=== PATIENT | female | born 1975 | race African-American/Black ===

== ENCOUNTER 2017-12-10 15:53 | Emergency (ER) | payer OTHER ==
[~2017-12-10] VITALS: Ht 160 cm; Wt 78.0 kg
[2017-12-10 19:27] VITALS: BP 128/94
== END 2017-12-10 22:21 | disposition home or self-care (01) ==
LOC: ER 15:59
DX: M25.572 Pain in left ankle and joints of left foot (principal); M79.672 Pain in left foot; J30.9 Allergic rhinitis, unspecified
CPT/HCPCS: 73610; 73620; 99284; L3260